=== PATIENT | male | born 1940 | race Caucasian/White ===

== ENCOUNTER 2023-09-19 17:24 | Observation (INO) ==
[2023-09-19] MEDS ORDERED: IOPAMIDOL 100 ML BOTTLE IV ONE (17:25)
[2023-09-19 17:58] LABS: Basophils # (Auto) 0.04 K/mcL (0.00-0.30); Basophils % (Auto) 0.5 % (0.0-2.0); Eosinophils # (Auto) 0.16 K/mcL (0.00-0.70); Eosinophils % (Auto) 1.9 % (0.0-7.0); Hemoglobin 14.2 g/dL (13.7-17.5); Lymphocytes # (Auto) 2.78 K/mcL (1.50-4.80); Mean Cell Volume 95.2 fL (80.0-100.0); Mean Corpuscular HGB Conc 32.3 g/dL (31.0-36.0); Mean Platelet Volume 10.4 fL (8.8-12.5); Monocytes # (Auto) 0.67 K/mcL (0.10-0.90); Monocytes % (Auto) 7.9 % (1.0-12.0); Neutrophils % (Auto) 56.6 % (38.0-78.0); Platelet Count 245 K/mcL (140-440); RBC 4.62 M/mcL (4.63-6.08); Red Cell Distribution Width 12.4 % (11.5-14.5); WBC 8.4 K/mcL (4.5-11.0)
[2023-09-19 18:07] LABS: POC INR 1.3 (0.8-1.2); POC Pro Time 15.4 (11.9-14.5)
[2023-09-19] MEDS: LACTATED RINGERS 1,000 ML IV ONE (18:16)
[2023-09-19 18:23] LABS: ALT/SGPT 9 U/L (<40); AST/SGOT 21 U/L (<40); Albumin 4.1 gm/dL (3.2-5.2); Albumin/Globulin Ratio 1.6 (1.0-2.3); Alkaline Phosphatase 80 U/L (39-117); Bilirubin,Direct < 0.2 mg/dL (0-0.3); Bilirubin,Total 0.4 mg/dL (0.1-1.0); Blood Urea Nitrogen 15 mg/dL (8-23); Calcium 9.2 mg/dL (8.6-10.4); Carbon Dioxide 25 mmol/L (22-30); Chloride 105 mmol/L (96-108); Globulin 2.5 gm/dL (2.2-3.7); Glomerular Filtration Rate 83; Glucose 150 mg/dL (70-105)
[2023-09-19 19:25] LABS: Appearance,Urine Clear (Clear); Bilirubin,Urine Negative (Negative); Color,Urine Yellow; Culture Indicated,Urine No; Glucose,Urine (UA) Negative (Negative); Ketones,Urine Negative (Negative); Leukocyte Esterase,Urine Negative /uL (Negative); Nitrate,Urine Negative (Negative); PH,Urine 5.5 (5.0-9.0); Protein,Urine Negative (Negative); Urine Blood Negative ery/mcL (Negative); Urobilinogen,Urine Normal
[2023-09-19] MEDS ORDERED: POTASSIUM CHLORIDE 40 MEQ in DEXTROSE 5% IN WATER 500 ML IV PRN (21:05)
[2023-09-19] MEDS ORDERED: ACETAMINOPHEN 325 MG TABLET PO PRN (21:05)
[2023-09-19] MEDS ORDERED: MAGNESIUM SULFATE 2 GM/50 ML BAG IV PRN (21:05)
[2023-09-19] MEDS ORDERED: POLYETHYLENE GLYCOL 3350 17 GM PACKET PO PRN (21:05)
[2023-09-19] MEDS ORDERED: SENNOSIDES 1 TABLET PO PRN (21:05)
[2023-09-19] MEDS ORDERED: POTASSIUM CHLORIDE 20 MEQ TABLET PO PRN ×2 (21:05)
[2023-09-19] MEDS ORDERED: ONDANSETRON 4 MG/2 ML VIAL IV PRN (21:05)
[2023-09-19] MEDS ORDERED: IPRATROPIUM/ALBUTEROL 3 ML AMPUL.NEB NEB PRN (21:05)
[2023-09-19] MEDS: ATORVASTATIN 40 MG TABLET PO SCH (21:32)
[2023-09-19] MEDS: 0.9 % SODIUM CHLORIDE 10 ML SYRINGE IV SCH (21:33)
[2023-09-20 07:22] LABS: ALT/SGPT 6 U/L (<40); AST/SGOT 19 U/L (<40); Albumin 3.7 gm/dL (3.2-5.2); Albumin/Globulin Ratio 1.8 (1.0-2.3); Alkaline Phosphatase 68 U/L (39-117); Bilirubin,Direct < 0.2 mg/dL (0-0.3); Bilirubin,Total 0.4 mg/dL (0.1-1.0); Blood Urea Nitrogen 12 mg/dL (8-23); Calcium 8.9 mg/dL (8.6-10.4); Carbon Dioxide 28 mmol/L (22-30); Chloride 108 mmol/L (96-108); Globulin 2.1 gm/dL (2.2-3.7); Glomerular Filtration Rate 88; Glucose 89 mg/dL (70-105); Lactate Dehydrogenase 155 U/L (135-225); Phosphorous 2.6 mg/dL (2.5-4.5); Triglycerides 84 mg/dL (<150); Uric Acid 4.8 mg/dL (2.5-8.0)
[2023-09-20] MEDS: ASPIRIN 81 MG TAB.CHEW PO SCH (08:58)
[2023-09-20] MEDS: ENOXAPARIN 40 MG/0.4 ML SYRINGE SQ SCH (08:58)
== END 2023-09-20 13:45 | disposition home or self-care (01) ==
LOC: ICU 17:24 → ED 17:24 → ICU 20:47
PROVIDERS: ADMIT Internal Medicine; ATTEND Internal Medicine